=== PATIENT | female | born 1990 | race Two or more races ===

== ENCOUNTER 2025-02-27 14:00 | Inpatient (IN) | payer OTHER ==
[~2025-02-27] VITALS: Ht 154.9 cm; Wt 3.6 kg
[2025-03-06 13:02] LABS: BASO % 0.2 % (0.1-1.2); EOS # 0.02 (0.04-0.54); EOS % 0.2 % (0.7-7.0); LYMPH # 1.55 (1.18-3.74); LYMPH % 14.0 % (19.3-53.1); MEAN PLATELET VOLUME 9.50 fl (9.4-12.4); MONO # 0.49 (0.24-0.82); MONO % 4.4 % (4.7-12.5); NEUT # 8.87 (1.56-6.13); NEUT % 80.4 % (34.0-71.1); RED CELL DISTRIBUTION WIDTH 14.4 % (11.6-14.4)
[2025-03-06 13:07] LABS: URINE APPEARANCE Cloudy; URINE BILIRRUBIN Negative (NEGATIVE); URINE BLOOD Negative; URINE COLOR Yellow; URINE GLUCOSE Negative (NEGATIVE); URINE KETONE Negative (NEGATIVE); URINE LEUKOCYTE Negative; URINE NITRATE Negative; URINE PROTEIN Negative (NEGATIVE); URINE UROBILINOGEN 0.2 E.U./dl
[2025-03-06 13:08] LABS: URINE BACTERIA 712.7 uL (0.0-1933); URINE EPITHELIAL CELLS 13.6 uL (0.0-38.8); URINE RBC 4.6 uL (0.0-20.8); URINE WBC 18.6 uL (0.0-23.2)
[2025-03-06 13:13] LABS: URINE CAST 0.00 uL (0.0-1.40)
[2025-03-06 13:24] LABS: INR < 0.93
[2025-03-06 13:44] LABS: ALT/SGPT 14.0 U/L (12-78); AST/SGOT 17.0 U/L (15-37); BILIRUBIN TOTAL 0.37 mg/dL (0.3-1.2); BUN CREA RATIO 23.0 (7.0-25.0); CREATININE SERUM 0.52 mg/dL (0.55-1.02); GFR 135.8; GLOBULINA 3.7 G/DL (2.4-3.5); GLUCOSE FASTING 74.0 mg/dL (65-100); OSMOLALITY SERUM 278.0 MOSM/KG (275-295)
[2025-03-07 05:30] VITALS: BP 107/72
[2025-03-07] MEDS ORDERED: ERYTHROMYCIN BASE OPHT 1GM EACH TUBE OP ONE ×2 (08:53→09:32)
[2025-03-07] MEDS ORDERED: OXYTOCIN 10 UNITS/ML VIAL ONE ×2 (08:53→09:32)
[2025-03-07] MEDS ORDERED: CITRIC ACID/SODIUM CITRATE 30 ML BLIST.PACK PO ONE (09:32)
[2025-03-07] MEDS ORDERED: CEFAZOLIN SODIUM 1,000 MG VIAL ONE (09:32)
[2025-03-07] MEDS ORDERED: MORPHINE SULFATE 4 MG/ML CARTRIDGE IV PRN (13:45)
[2025-03-07 18:37] VITALS: BP 113/67
[2025-03-08 00:52] VITALS: BP 107/66
[2025-03-08 04:00] VITALS: BP 97/59
[2025-03-08 08:00] VITALS: BP 104/68
[2025-03-08 10:40] LABS: BASO % 0.2 % (0.1-1.2); EOS # 0.02 (0.04-0.54); EOS % 0.2 % (0.7-7.0); LYMPH # 1.03 (1.18-3.74); LYMPH % 10.3 % (19.3-53.1); MEAN PLATELET VOLUME 9.50 fl (9.4-12.4); MONO # 0.52 (0.24-0.82); MONO % 5.2 % (4.7-12.5); NEUT # 8.31 (1.56-6.13); NEUT % 83.4 % (34.0-71.1); RED CELL DISTRIBUTION WIDTH 14.6 % (11.6-14.4)
[2025-03-08] MEDS ORDERED: ACETAMINOPHEN 500 MG GEL..CAP PO PRN (10:45)
[2025-03-08] MEDS ORDERED: OxyCODONE HCL 5 MG TABLET (ROXICODONE) PO PRN (11:00)
[2025-03-08 17:28] VITALS: BP 115/77
[2025-03-09 01:01] VITALS: BP 96/60
[2025-03-09] MEDS ORDERED: OxyCODONE HCL 5 MG TABLET (ROXICODONE) PO PRN (06:00)
[2025-03-09 08:00] VITALS: BP 107/70
== END 2025-03-09 16:36 | disposition home or self-care (01) | DRG 788 ==
LOC: OB/GYN 03-04 14:00 → O/R 03-07 07:00 → OB/GYN 03-07 14:00
PROVIDERS: ADMIT Obstetrics & Gynecology; ATTEND Obstetrics & Gynecology
PROC: 4A1HXCZ Monitoring of Products of Conception, Cardiac Rate, External Approach (ICD-10-PCS; 2025-03-07)
PROC: 10D00Z1 Extraction of Products of Conception, Low, Open Approach (ICD-10-PCS; principal; 2025-03-07 09:30)
DX: O36.63X0 Maternal care for excessive fetal growth, third trimester, not applicable or unspecified (principal); Z3A.40 40 weeks gestation of pregnancy; Z37.0 Single live birth

== ENCOUNTER → 2025-02-27 | Outpatient (CLI) | payer OTHER | END | disposition home or self-care (01) | LOC: NST 16:22 | PROVIDERS: ATTEND Obstetrics & Gynecology Maternal & Fetal Medicine | DX: Z34.83 Encounter for supervision of other normal pregnancy, third trimester (principal) ==

== ENCOUNTER 2025-03-02 10:20 | Outpatient (CLI) | payer OTHER | END 2025-03-02 12:03 | disposition home or self-care (01) | LOC: NST 10:20 | PROVIDERS: ATTEND Obstetrics & Gynecology Gynecology | DX: Z34.83 Encounter for supervision of other normal pregnancy, third trimester (principal) ==